=== PATIENT | male | born 2005 | race Caucasian/White ===

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

== ENCOUNTER 2023-05-14 08:58 | Emergency (ER) | payer MEDICAID ==
[~2023-05-14] VITALS: Ht 188 cm; Wt 98.8 kg
[2023-05-14 11:10] VITALS: BP 130/77; PULSE 86; RESP 16; TEMP 98.1; O2SAT 99
== END 2023-05-14 11:14 | disposition home or self-care (01) ==
LOC: ER 08:59
DX: B34.9 Viral infection, unspecified (principal); Z20.822 Contact with and (suspected) exposure to COVID-19
CPT/HCPCS: 36415; 87502; 87503; 87811; 99283

== ENCOUNTER → 2023-06-26 | Emergency (ER) | payer BC, MEDICAID ==
[~2023-06-26] VITALS: Ht 188 cm; Wt 101.0 kg
[2023-06-26 14:49] VITALS: BP 150/84; PULSE 87; TEMP 98.6; O2SAT 99
[2023-06-26 15:19] VITALS: RESP 16
== END | disposition home or self-care (01) ==
LOC: ER 14:48
DX: J06.9 Acute upper respiratory infection, unspecified (principal); R50.9 Fever, unspecified; R05.9 Cough, unspecified; Z79.899 Other long term (current) drug therapy
CPT/HCPCS: 99282